=== PATIENT | female | born 1990 | race Caucasian/White ===

== ENCOUNTER 2018-05-24 08:30 | Outpatient (RCR) | payer OTHER | END 2018-08-08 | disposition home or self-care (01) | LOC: PT | DX: M54.5 Low back pain (principal); G89.29 Other chronic pain; M25.552 Pain in left hip ==

== ENCOUNTER 2019-02-13 08:00 | Outpatient (RCR) | payer OTHER | END 2019-02-13 08:30 | disposition still patient (30) | LOC: PT 08:00 | DX: M54.5 Low back pain (principal); G89.29 Other chronic pain ==